=== PATIENT | male | born 1965 | race American Indian/Alaskan Native ===

== ENCOUNTER 2017-03-13 13:51 | Outpatient (CLI) | payer OTHER ==
[2017-03-13] MEDS ORDERED: PROVENTIL IH ONE (14:06)
== END 2017-03-13 13:52 | disposition home or self-care (01) ==
LOC: PF 13:51
PROVIDERS: ATTEND Internal Medicine
DX: I10 Essential (primary) hypertension (principal); J45.909 Unspecified asthma, uncomplicated; F32.9 Major depressive disorder, single episode, unspecified; F41.9 Anxiety disorder, unspecified; M79.7 Fibromyalgia
CPT/HCPCS: 94060; 94640